=== PATIENT | male | born 1940 | race Caucasian/White ===

== ENCOUNTER 2016-09-14 10:54 | Outpatient (CLI) | payer MEDICARE, BC ==
[2016-09-14 11:38] LABS: Hemoglobin A1c 7.3 % (4.0-6.0)
[2016-09-14 11:44] LABS: ALT (SGPT) 10 U/L (0-55); AST (SGOT) 9 U/L (5-34); Albumin 4.3 g/dL (3.4-4.8); Alkaline Phosphatase 61 U/L (40-150); Anion Gap 15 mmol/L (10-20); BUN (Urea Nitrogen) 12 mg/dL (8.4-25.7); Bilirubin, Direct 0.2 mg/dL (0.1-0.3); Bilirubin, Total 0.4 mg/dL (0.2-1.2); Calc. Creatinine Clearance 0 mL/min (70-130); Calcium 9.4 mg/dL (7.8-10.44); Carbon Dioxide 26 mmol/L (23-31); Cardiac Risk 4.4 (Less than 4.5); Chloride 103 mmol/L (98-107); Cholesterol 135 mg/dL (< 200 Desired); Estimated GFR-MDRD 71; Glucose 159 mg/dL (83-110); HDL Cholesterol 31 mg/dL (>60 Neg Risk); LDL Cholesterol, Calculated 50 mg/dL; Potassium 3.9 mmol/L (3.5-5.1); Protein, Total 7.1 g/dL (5.8-8.1); Sodium 140 mmol/L (136-145); Triglycerides 271 mg/dL (Less than 150)
== END 2016-09-14 10:55 | disposition home or self-care (01) ==
LOC: MADLABBHPM 10:54
PROVIDERS: ATTEND Family Medicine
DX: E11.9 Type 2 diabetes mellitus without complications (principal)
CPT/HCPCS: 36415; 80048; 80061; 80076; 83036

== ENCOUNTER 2016-12-19 08:21 | Outpatient (CLI) | payer MEDICARE, BC ==
[2016-12-19 08:54] LABS: #Basophils 0.1 thou/uL (0.0-0.2); #Eosinphils 0.1 thou/uL (0.0-0.7); #Lymphocytes 1.2 thou/uL (1.20-3.40); #Monocytes 0.5 thou/uL (0.11-0.59); #Neutrophils 4.8 thou/uL (1.40-6.50); %Basophils 1.6 % (0.0-1.0); %Eosinophils 1.8 % (0.0-10.0); %Lymphocytes 17.4 % (21.0-51.0); %Monocytes 7.5 % (0.0-10.0); %Neutrophils 71.7 % (42.0-75.0); Hemoglobin 16.8 g/dL (14.0-18.0); Mean Corpuscular HGB CONC 32.8 g/dL (32.0-36.0); Mean Corpuscular Hemoglobin 28.9 pg (27.0-31.0); Mean Corpuscular Volume 88.2 fl (80.0-94.0); Mean Platelet Volume 7.4 fL (7.4-10.4); Platelet Count 238 thou/uL (130-400); RBC Distribution Width 12.3 % (11.5-14.5); Red Blood Cell (RBC) Count 5.82 mill/uL (4.70-6.10); White Blood Cell (WBC) Count 6.7 thou/uL (4.8-10.8)
[2016-12-19 09:07] LABS: Hemoglobin A1c 7.3 % (4.0-6.0)
[2016-12-19 09:22] LABS: ALT (SGPT) 12 U/L (8-55); AST (SGOT) 10 U/L (5-34); Alkaline Phosphatase 65 U/L (40-150); Anion Gap 14 mmol/L (10-20); BUN (Urea Nitrogen) 17 mg/dL (8.4-25.7); Bilirubin, Direct 0.2 mg/dL (0.1-0.3); Bilirubin, Total 0.4 mg/dL (0.2-1.2); Calc. Creatinine Clearance 0 mL/min (70-130); Calcium 9.5 mg/dL (7.8-10.44); Carbon Dioxide 24 mmol/L (23-31); Cardiac Risk 3.9 (Less than 4.5); Chloride 104 mmol/L (98-107); Cholesterol 130 mg/dl (< 200 Desired); Estimated GFR-MDRD 86; Glucose 152 mg/dL (83-110); HDL Cholesterol 33 mg/dL (>60 Neg Risk); LDL Cholesterol, Calculated 64 mg/dL; Potassium 4.4 mmol/L (3.5-5.1); Protein, Total 7.5 g/dL (5.8-8.1); Sodium 138 mmol/L (136-145); Triglycerides 166 mg/dL (Less than 150)
== END 2016-12-19 08:22 | disposition home or self-care (01) ==
LOC: MADLABBHPM 08:21
PROVIDERS: ATTEND Family Medicine
DX: E11.9 Type 2 diabetes mellitus without complications (principal)
CPT/HCPCS: 36415; 80048; 80061; 80076; 83036; 84443; 85025

== ENCOUNTER 2019-10-31 07:59 | Emergency (ER) | payer MEDICARE, BC ==
[2019-10-31 08:42] LABS: Bilirubin Negative (Negative); Blood, Urine Moderate (Negative); Clarity Clear (Clear); Glucose, Urine (Dipstick) 500 mg/dL (Negative); Leukocyte Negative (Negative); Nitrite Negative (Negative); Protein, Urine (Dipstick) 30 mg/dL (Neg-Trace); Urobilinogen 0.2 mg/dL (Less than 2)
[2019-10-31 08:47] LABS: Bacteria/HPF Rare-Few HPF (None Seen)
[2019-10-31 08:52] LABS: #Basophils 0.1 thou/uL (0.0-0.2); #Eosinphils 0.1 thou/uL (0.0-0.7); #Lymphocytes 1.3 thou/uL (1.20-3.40); #Monocytes 0.5 thou/uL (0.11-0.59); %Basophils 0.8 % (0.0-1.0); %Eosinophils 0.8 % (0.0-10.0); %Lymphocytes 12.6 % (21.0-51.0); %Neutrophils 80.9 % (42.0-75.0); Hemoglobin 14.8 g/dL (14.0-18.0); Mean Corpuscular HGB CONC 30.3 g/dL (32.0-36.0); Mean Corpuscular Hemoglobin 26.8 pg (27.0-31.0); Mean Corpuscular Volume 88.4 fL (78.0-98.0); Mean Platelet Volume 6.3 fL (7.4-10.4); Platelet Count 338 thou/uL (130-400); RBC Distribution Width 12.7 % (11.5-14.5); Red Blood Cell (RBC) Count 5.52 mill/uL (4.70-6.10); White Blood Cell (WBC) Count 9.9 thou/uL (4.8-10.8)
--- NOTE | 2019-10-31 08:55 | CT ---
CT ABDOMEN NONCONTRAST CT PELVIS NONCONTRAST: (Urolithiasis protocol) DATE: 10/31/2019 HISTORY: 79-year-old male with right flank pain and hematuria COMPARISON: None TECHNIQUE: IV injection of iodinated contrast media: None Oral contrast media: None FINDINGS: Other than for urolithiasis, the lack of IV and oral contrast limits the evaluation. Lumen of the urinary bladder is filled with material of intermediate density, 24 Hounsfield units, wh ich given the patient's history, is highly likely to represent blood. There is diffuse mural thickening of the urinary bladder. There is diffuse lining of thin layer of lucency along the inner w all of the urinary bladder that is probably fat density rather than gas density. Etiology of this is uncertain. There are no renal, ureteral, or bladder calculi. No hydronephrosis. Normal appendix. Large number of diverticula throughout the descending and sigmoid colon. Atherosclerosis and ectasia of abdominal aorta, without aneurysm. Within the limitations of a noncontrast scan, no obvious major pathology identified involving bilater al kidneys, right adrenal, liver, pancreas, or spleen. Questionable tiny left adrenal nodules. Lung bases are mostly clear. No small bowel dilation, ascites, or pneumoperitoneum. High-grade right neural foraminal stenosis at L3-4. Multilevel bilateral facet DJD. No compression fr acture of lumbar spine. IMPRESSION: 1) evidence of hematuria in the urinary bladder. 2) diffuse mural thickening of urinary bladder. 3) no urolithiasis or obstructive uropathy. 4) high-grade right lumbar neural foraminal stenosis at L3-4.
[2019-10-31 09:11] LABS: ALT (SGPT) 10 U/L (8-55); AST (SGOT) 10 U/L (5-34); Alkaline Phosphatase 67 U/L (40-110); Anion Gap 18 mmol/L (10-20); BUN (Urea Nitrogen) 16 mg/dL (8.4-25.7); Bilirubin, Total 0.4 mg/dL (0.2-1.2); Calc. Creatinine Clearance 0 mL/min (70-130); Calcium 9.2 mg/dL (7.8-10.44); Carbon Dioxide 21 mmol/L (23-31); Chloride 101 mmol/L (98-107); Estimated GFR-MDRD 80; Globulin 3.5 g/dL (2.4-3.5); Glucose 251 mg/dL (83-110); Potassium 4.2 mmol/L (3.5-5.1); Protein, Total 7.5 g/dL (5.8-8.1); Sodium 136 mmol/L (136-145)
[2019-10-31] MEDS ORDERED: Ketorolac Tromethamine 30 MG/ML VIAL ONE (09:25)
== END 2019-10-31 09:40 | disposition home or self-care (01) ==
LOC: MADERS 07:59
DX: R31.0 Gross hematuria (principal); E11.9 Type 2 diabetes mellitus without complications; K21.9 Gastro-esophageal reflux disease without esophagitis; E78.5 Hyperlipidemia, unspecified; E78.00 Pure hypercholesterolemia, unspecified; Z79.82 Long term (current) use of aspirin; Z79.899 Other long term (current) drug therapy; Z79.4 Long term (current) use of insulin
CPT/HCPCS: 74176; 80053; 81003; 81015; 85025; 96374; J1885

== ENCOUNTER 2019-11-10 07:58 | Emergency (ER) | payer MEDICARE, BC ==
[2019-11-10 08:51] LABS: Bilirubin Negative (Negative); Blood, Urine Moderate (Negative); Glucose, Urine (Dipstick) 500 mg/dL (Negative); Leukocyte Trace (Negative); Nitrite Negative (Negative); Protein, Urine (Dipstick) Negative (Neg-Trace); Urobilinogen 0.2 mg/dL (Less than 2)
[2019-11-10 08:53] LABS: Clarity Hazy (Clear)
[2019-11-10 08:58] LABS: Bacteria/HPF Rare-Few HPF (None Seen); Squamous Epithelial 0-3 HPF (0-3)
== END 2019-11-10 09:40 | disposition home or self-care (01) ==
LOC: MADERS 07:58
DX: M54.16 Radiculopathy, lumbar region (principal); M48.061 Spinal stenosis, lumbar region without neurogenic claudication; K59.00 Constipation, unspecified; R31.9 Hematuria, unspecified; I10 Essential (primary) hypertension; I25.10 Atherosclerotic heart disease of native coronary artery without angina pectoris; E11.9 Type 2 diabetes mellitus without complications; K21.9 Gastro-esophageal reflux disease without esophagitis; E78.5 Hyperlipidemia, unspecified; Z79.4 Long term (current) use of insulin; Z79.899 Other long term (current) drug therapy
CPT/HCPCS: 81003; 81015; 87086; 99284

== ENCOUNTER 2020-03-09 12:33 | Emergency (ER) | payer MEDICARE, BC ==
[~2020-03-09 12:33] MED LIST: Iopamidol 370 76% 100 ML VIAL ONE
[2020-03-09] MEDS ORDERED: Furosemide 40 MG/4 ML VIAL ONE (13:27)
[2020-03-09 13:35] LABS: #Basophils 0.1 thou/uL (0.0-0.2); #Eosinphils 0.1 thou/uL (0.0-0.7); #Monocytes 0.8 thou/uL (0.11-0.59); #Neutrophils 12.4 thou/uL (1.40-6.50); %Basophils 0.5 % (0.0-1.0); %Eosinophils 0.5 % (0.0-10.0); %Lymphocytes 7.2 % (21.0-51.0); %Monocytes 5.5 % (0.0-10.0); %Neutrophils 86.4 % (42.0-75.0); Hemoglobin 7.8 g/dL (14.0-18.0); Hypochromia SLIGHT = 6-15 cells (100X) (0-5/hpf); MDiff Complete? YES; Mean Corpuscular HGB CONC 29.5 g/dL (32.0-36.0); Mean Corpuscular Hemoglobin 24.2 pg (27.0-31.0); Mean Corpuscular Volume 81.9 fL (78.0-98.0); Mean Platelet Volume 4.8 fL (7.4-10.4); Platelet Count 577 thou/uL (130-400); RBC Distribution Width 14.2 % (11.5-14.5); Red Blood Cell (RBC) Count 3.25 mill/uL (4.70-6.10); White Blood Cell (WBC) Count 14.3 thou/uL (4.8-10.8)
[2020-03-09 13:39] LABS: ALT (SGPT) 17 U/L (8-55); AST (SGOT) 16 U/L (5-34); Albumin 2.7 g/dL (3.4-4.8); Alkaline Phosphatase 93 U/L (40-110); Anion Gap 18 mmol/L (10-20); BUN (Urea Nitrogen) 28 mg/dL (8.4-25.7); Bilirubin, Total 0.2 mg/dL (0.2-1.2); CK (CPK) 18 U/L (30-200); CRP (Inflammatory) 6.93 mg/dL (= or < 0.5); Calc. Creatinine Clearance 0 mL/min (70-130); Calcium 8.5 mg/dL (7.8-10.44); Carbon Dioxide 25 mmol/L (23-31); Chloride 100 mmol/L (98-107); Estimated GFR-MDRD 61; Globulin 3.9 g/dL (2.4-3.5); Glucose 155 mg/dL (83-110); Potassium 4.5 mmol/L (3.5-5.1); Protein, Total 6.6 g/dL (5.8-8.1); Sodium 138 mmol/L (136-145)
--- NOTE | 2020-03-09 14:02 | RAD ---
RADIOGRAPH CHEST 1 VIEW: DATE: 03/09/2020 HISTORY: 80-year-old male with chest pain FINDINGS: There are no airspace densities, pulmonary edema, pneumothorax, or cardiomegaly. The lateral costophr enic angles are sharp. Old fracture of posterior lateral aspect of left seventh rib. Sternotomy wires. IMPRESSION: No acute cardiopulmonary findings.
[2020-03-09] MEDS ORDERED: Sodium Chloride 0.9% 100 ML ONE (14:05)
[2020-03-09] MEDS ORDERED: Cefepime 2 GM VIAL ONE (14:05)
--- NOTE | 2020-03-09 14:11 | RAD ---
Radiograph right hip 2 views: 03/09/2020 HISTORY: 80-year-old male with nontraumatic right hip pain FINDINGS: Small lateral subcapital osteophytes. Minimal irregularity of superior femoral head contour without collapse. Mild irregularity and hypertrophy of acetabulum. Mild, asymmetrical superior and central joint space narrowing. No fracture or dislocation. IMPRESSION: Moderate osteoarthrosis of right hip.
--- NOTE | 2020-03-09 14:12 | RAD ---
Radiograph left hip 2 views: 03/09/2020 HISTORY: 80-year-old male with left hip pain FINDINGS: Femoral head contour maintained. No subcapital osteophytes. Mild irregularity and sclerosis with mild bony hypertrophy of acetabular roof, without high-grade joint space narrowing. No fracture or dislocation. IMPRESSION: Mild osteoarthrosis of left hip
[2020-03-09 14:14] LABS: Bilirubin Negative (Negative); Blood, Urine Large (Negative); Clarity Slightly Cloudy (Clear); Glucose, Urine (Dipstick) Negative (Negative); Ketone, Urine Negative (Negative); Leukocyte Moderate (Negative); Nitrite Negative (Negative); Protein, Urine (Dipstick) 30 mg/dL (Neg-Trace); Urobilinogen 0.2 mg/dL (Less than 2)
[2020-03-09 14:17] LABS: Bacteria/HPF 1+ HPF (None Seen)
[2020-03-09] MEDS ORDERED: Vancomycin 1.5 GRAM/300 ML BAG ONE (14:46)
--- NOTE | 2020-03-09 15:03 | CT ---
CT ABDOMEN AND PELVIS WITH IV CONTRAST: Date: 03/09/2020 INDICATION: Abdominal pain. Anemia. Constipation. Comparison made to CT abdomen and pelvis without contrast dated 10/31/2019. FINDINGS: Lung bases clear. Liver, spleen, and pancreas unremarkable. Small bowel loops normal caliber. Colon unremarkable with diverticulosis again seen in sigmoid and left colon. Abdominal aorta shows atherosclerotic change and ectasia, measuring up to 2.5 cm distally with periph eral thrombus and calcification. Adrenal glands unremarkable. Review of kidneys shows prominent bilateral hydronephrosis and hydroureters. The bladder is contracte d with significant bladder wall thickening. The prostate is enlarged and nodular and appears to invol ve the floor of the bladder. This is producing bilateral UVJ obstruction and bilateral hydronephrosis . Osseous structures unremarkable with degenerative changes in the spine again noted. IMPRESSION: 1. Obstructive uropathy with severe bilateral hydronephrosis and hydroureters. 2. Prostate is enlarged and has progressed in enlargement and nodularity since the prior exam. It in volves the floor of the bladder. Prostatic neoplasm with invasion of the floor of the bladder should be excluded. This is producing bilateral UVJ obstruction and hydronephrosis. Severe bladder wall thic kening. Recommend urologic consultation. POS: OFF
[2020-03-09] MEDS ORDERED: HYDROcodone/Acetaminophen 10/325 mg Tablet ONE (15:21)
== END 2020-03-09 16:33 | disposition short-term general hospital (02) ==
LOC: MADERS 12:33
DX: L03.116 Cellulitis of left lower limb (principal); D64.9 Anemia, unspecified; C61 Malignant neoplasm of prostate; I87.8 Other specified disorders of veins; I10 Essential (primary) hypertension; I25.10 Atherosclerotic heart disease of native coronary artery without angina pectoris; E11.9 Type 2 diabetes mellitus without complications; K21.9 Gastro-esophageal reflux disease without esophagitis; E78.5 Hyperlipidemia, unspecified; E78.00 Pure hypercholesterolemia, unspecified; Z79.4 Long term (current) use of insulin; Z79.899 Other long term (current) drug therapy
CPT/HCPCS: 71045; 74177; 80053; 81003; 81015; 82550; 83880; 85025; 85379; 86140; 87070; 87077; 87086; 87186; 87205; 94760; 96365; 96366; 96367; 96375; J0692; J1940; J3370; J3490; Q9967